=== PATIENT | female | born 1995 | race Asian ===

== ENCOUNTER → 2022-12-12 07:20 | Outpatient (CLI) | payer OTHER, SELFPAY ==
--- NOTE | 2022-12-12 07:23 | DI.US.S_ITS ---
PROCEDURE: US OB <= 14 WEEKS FETUS INDICATIONS: DATING OUTSIDE/PRIOR DATING DATA: Last menstrual period (LMP): 10/05/2022 LMP-based estimated date of delivery (TRAVON): 07/12/2023 First dating scan (date and location): 12/12/2022 Estimated date of delivery (TRAVON) from first dating scan: 07/25/2023 TECHNIQUE: Real-time scanning was performed of the fetus and maternal pelvic organs, with image documentation. Endovaginal scanning was also performed to better visualize the fetus and maternal ovaries. COMPARISON: None. FINDINGS: Embryo: Intrauterine gestational sac is seen with yolk sac and pole. Lower [place]-rump length is 1.5 cm, compatible with an estimated gestational age of 7 weeks 6 days. Suspected perigestational sac hemorrhage inferiorly measuring 1.5 x 2.9 x 1.7 cm. Heart rate: 157 beats per minute Maternal organs: A simple right adnexal cyst measures up to 2.3 cm in maximum dimension. Small amount of free fluid is seen in the pelvis. Left ovary is not well visualized. IMPRESSION: 1. Single live intrauterine with estimated gestational age of 7 weeks 6 days, giving an ultrasound TRAVON of 07/25/2023. 2. Possible perigestational sac hemorrhage measuring 1.5 x 2.9 x 1.7 cm. 3. Small amount of nonspecific free fluid is seen in the pelvis. We strive to produce accurate, complete, and clear reports of imaging services. To assist us in improving patient care, this report was composed using standard report templates and voice recognition software. Therefore, it may contain abnormal punctuation, insertions and/or omissions. Occasional wrong-word or sound-alike substitutions may occur. Though we review the report and make efforts to correct it, we do recommend that the report be read carefully in proper context to recognize any text inaccuracies. Approved by: Lance Woodward M.D. on 12/12/2022 at 13:46
== END ==
PROVIDERS: Referring Provider Obstetrics & Gynecology; Visit Provider Obstetrics & Gynecology
DX: Z36.87 Encounter for antenatal screening for uncertain dates (principal); Z3A.01 Less than 8 weeks gestation of pregnancy
CPT/HCPCS: 76801; 76817

== ENCOUNTER → 2023-01-16 11:03 | Outpatient (CLI) | payer OTHER, SELFPAY ==
[2023-01-16 11:40] LABS: Specimen Label NATERA
[2023-01-16 14:15] LABS: Urine Chlamydia NOT DETECTED; Urine N gonorrhoeae NOT DETECTED
== END ==
PROVIDERS: Referring Provider Specialist; Visit Provider Specialist
DX: Z34.81 Encounter for supervision of other normal pregnancy, first trimester (principal); Z3A.12 12 weeks gestation of pregnancy; Z11.3 Encounter for screening for infections with a predominantly sexual mode of transmission
CPT/HCPCS: 36415; 87491; 87591

== ENCOUNTER → 2023-02-11 08:49 | Outpatient (CLI) | payer OTHER, SELFPAY ==
[2023-02-11 10:15] LABS: Add Manual Diff / Slide Review NO; Basophils Absolute Auto 0 /uL (0-100); Basophils Percent Auto 0.1 % (0-2); Eosinophils Absolute Auto 200 /uL (0-450); Eosinophils Percent Auto 1.7 % (2-4); Hematocrit 36.4 % (36-46); Hemoglobin 12.4 g/dL (12.0-16.0); Lymphocytes Absolute Auto 1400 /uL (1100-4500); Lymphocytes Percent Auto 12.2 % (25-40); Mean Corpuscular HGB Conc 34.1 % (30-36); Mean Corpuscular Volume 90.8 fL (80-100); Monocytes Absolute Auto 400 /uL (0-900); Neutrophils Absolute Auto 9200 /uL (1500-7000); Platelet Count 235 X10^3/uL (150-400); Red Blood Cell Count 4.01 X10^6/uL (4.0-5.2); Red Cell Distribution Width 13.3 % (11.6-14.8); White Blood Cell Count 11.2 X10^3/uL (4.5-11.0)
[2023-02-11 16:25] LABS: Hepatitis B Surface Antigen NEGATIVE s/c (NEGATIVE)
[2023-02-11 17:04] LABS: Rubella Antibody IgG 38.3 IU/mL (>15)
[2023-02-11 17:23] LABS: HIV 1 & 2 Ab/Ag 4th Gen Combo NEGATIVE (NEGATIVE); Hep C Virus Ab w/Reflex Quant NEGATIVE s/c (NEGATIVE)
[2023-02-12 06:36] LABS: RPR Screen Non Reactive (Non Reactive)
[2023-02-12 08:36] LABS: Varicella IgG Antibody 734 index (Immune >165)
[2023-02-13 19:56] LABS: AFP Value 25.5 ng/mL (.); Gest Age on Col Date 18.4 weeks (.); Insulin Dep Diabetes No (.); OSBR Risk 1IN 10000 (.); Results Report (.); Test Results *Screen Negative* (.)
[2023-02-14 09:27] LABS: PDF SCANNED
== END ==
PROVIDERS: Obstetrics & Gynecology; Referring Provider Specialist; Visit Provider Specialist
DX: Z34.82 Encounter for supervision of other normal pregnancy, second trimester (principal); Z3A.16 16 weeks gestation of pregnancy
CPT/HCPCS: 36415; 80055; 82105; 86787; 86803; 86850; 86900; 86901; 87389

== ENCOUNTER → 2023-03-08 09:55 | Outpatient (CLI) | payer OTHER, SELFPAY ==
--- NOTE | 2023-03-08 09:56 | DI.US.S_ITS ---
PROCEDURE: US OB >= 14 WEEKS FETUS INDICATIONS: 20 week anatomy scan OUTSIDE/PRIOR DATING DATA: Last menstrual period (LMP): 10/05/2022. LMP-based estimated date of delivery (TRAVON): 07/12/2023. First dating scan (date and location): 12/12/2022. Estimated date of delivery (TRAVON) from first dating scan: 07/25/2023. The calculations are made using the ultrasound TRAVON of 07/25/2023. TECHNIQUE: Real-time scanning was performed of the fetus, with image documentation and biometric measurements. COMPARISON: 12/12/2022. FINDINGS: General: A single living intrauterine gestation is present. Presentation: Transverse, head left. Placenta: Placental position is anterior. Placenta edge 1.8 cm from the internal cervical os. Low lying. Venous lakes. Amniotic fluid index: 11.2 cm, normal range is 5-24 cm. Single deepest vertical pocket is 4.7 cm. heart rate: 149 beats per minute. Maternal cervical canal: 5.8 cm long. Normal lower limit is 2.5 cm. biometrics: Biparietal diameter: 4.5 cm, 19 weeks 5 days Head circumference: 17.7 cm, 20 weeks 1 day Abdominal circumference: 14.4 cm, 19 weeks 5 days Femur length: 3.2 cm, 19 weeks 6 days Clinically estimated gestational age: 20 weeks 1 day Composite gestational age from present scan: 19 weeks 6 days Estimated weight and percentile: 315 g, 28th percentile Anatomic survey: Neuro: Ventricles are non-dilated at less than 10 mm. Cisterna magna is normal at 3-11 mm. Cerebellum is normal in size and morphology. Nuchal skin fold: Normal at less than 6 mm between 14-21 weeks gestational age. Face: Nose and lips, facial profile are normal. Spine: No evidence for spina bifida. Heart: 4-chambered heart is present, with normal ventricular outflow tracts. Left ventricle echogenic foci x2. Diaphragm: Diaphragm is intact. Stomach: Left-sided stomach is present. Kidneys: No hydronephrosis. Normal is less than 5 mm in 2nd trimester, less than 7 mm in 3rd trimester. Cord: 3-vessel cord has orthotopic insertion. Bladder: Normal in size. Extremities: All 4 extremities identified. IMPRESSION: 1. [place] living intrauterine at 19 weeks 6 days based on today's ultrasound. Fetus is in the 28th percentile for weight. 2. Normal amniotic fluid. Low lying placenta 1.8 cm from the internal cervical os. Recommend follow-up OB ultrasound. 3. Echogenic intracardiac foci. Soft marker for aneuploidy. Otherwise normal and complete anatomic survey. We strive to produce accurate, complete, and clear reports of imaging services. To assist us in improving patient care, this report was composed using standard report templates and voice recognition software. Therefore, it may contain abnormal punctuation, insertions and/or omissions. Occasional wrong-word or sound-alike substitutions may occur. Though we review the report and make efforts to correct it, we do recommend that the report be read carefully in proper context to recognize any text inaccuracies. Dictated by: Osbaldo De La Torre M.D. on 03/08/2023 at 14:10 Approved by: Osbaldo De La Torre M.D. on 03/08/2023 at 14:19
== END ==
PROVIDERS: Referring Provider Specialist; Visit Provider Specialist
DX: Z34.82 Encounter for supervision of other normal pregnancy, second trimester (principal); Z3A.20 20 weeks gestation of pregnancy
CPT/HCPCS: 76811; 87086

== ENCOUNTER → 2023-04-08 10:40 | Outpatient (CLI) | payer OTHER, SELFPAY ==
[2023-04-08 13:25] LABS: Hematocrit 37.4 % (36-46); Hemoglobin 12.7 g/dL (12.0-16.0)
[2023-04-08 13:49] LABS: GTT (PREG) 1 Hour PP 50gm Dose 116 mg/dL (76-139)
== END ==
PROVIDERS: Referring Provider Student in an Organized Health Care Education/Training Program; Visit Provider Student in an Organized Health Care Education/Training Program
DX: Z34.82 Encounter for supervision of other normal pregnancy, second trimester (principal); Z3A.24 24 weeks gestation of pregnancy
CPT/HCPCS: 36415; 82950; 85014; 85018

== ENCOUNTER 2023-04-28 18:20 | Outpatient (CLI) | payer OTHER, SELFPAY ==
[2023-04-28 19:09] LABS: Appearance Urine UA CLEAR; Bilirubin Urine UA NEGATIVE (NEGATIVE); Color Urine UA YELLOW; Glucose Urine UA NEGATIVE (Negative); Ketones Urine UA NEGATIVE (NEGATIVE); Leukocyte Esterase Urine UA NEGATIVE (NEGATIVE); Nitrite Urine UA NEGATIVE (Negative); Occult Blood Urine UA TRACE-INTACT (Negative); Protein Urine UA NEGATIVE (Negative); Urobilinogen Urine UA 0.2 E.U./dL (0.2)
[2023-04-28 19:11] LABS: pH Urine UA 6.5 (4.5-8.0)
[2023-04-28 19:25] LABS: Bacteria Urine Moderate (10-30); Culture Indicated Urine Specimen Cultured; RBC Urine 0-1/HPF (0-5/HPF); Squamous Epithelial Cell Urine 5-10 /HPF (0-5/HPF); WBC Urine 0-1/HPF (0-5/HPF)
== END 2023-04-28 20:00 | disposition home or self-care (01) ==
LOC: OB 05-02 15:59
PROVIDERS: PCP Nurse Practitioner Family; Referring Provider Obstetrics & Gynecology; Visit Provider Obstetrics & Gynecology
DX: O60.02 Preterm labor without delivery, second trimester (principal); Z3A.27 27 weeks gestation of pregnancy
CPT/HCPCS: 59025; 59050; 81001; 87086; G0378; G0379

== ENCOUNTER → 2023-05-06 10:31 | Outpatient (CLI) | payer OTHER, SELFPAY ==
--- NOTE | 2023-05-06 10:32 | DI.US.S_ITS ---
PROCEDURE: US OB FOLLOW UP INDICATIONS: low lying placenta OUTSIDE/PRIOR DATING DATA: Last menstrual period (LMP): 10/05/2022. LMP-based estimated date of delivery (TRAVON): 07/12/2023. First dating scan (date and location): 12/12/2022. Estimated date of delivery (TRAVON) from first dating scan: 07/25/2023. The calculations are made using the working TRAVON of 07/25/2023. TECHNIQUE: Real-time scanning was performed of the fetus, with image documentation and biometric measurements. Endovaginal scanning: None COMPARISON: None. FINDINGS: General: A single living intrauterine gestation is present. Presentation: Vertex. Placenta: Placental position is anterior , without previa. Amniotic fluid index: 16.4 cm, normal range is 5-24 cm. Single deepest vertical pocket is 6.1 cm. heart rate: 153 beats per minute. Maternal cervical canal: 4.8 cm long. Normal lower limit is 2.5 cm. biometrics: IMPRESSION: Single intrauterine with appropriately positioned anterior placenta. No evidence of low lying placenta or placenta previa Approved by: Roberto Carlos Chaudhari M.D. on 05/06/2023 at 17:09
== END ==
PROVIDERS: PCP Student in an Organized Health Care Education/Training Program; Referring Provider Student in an Organized Health Care Education/Training Program; Visit Provider Student in an Organized Health Care Education/Training Program
DX: O44.42 Low lying placenta NOS or without hemorrhage, second trimester (principal)
CPT/HCPCS: 76816

== ENCOUNTER 2023-06-10 10:16 | Outpatient (CLI) | payer OTHER, SELFPAY ==
[2023-06-10 10:36] VITALS: BP 116/75
[2023-06-10 11:02] LABS: Add Manual Diff / Slide Review NO; Basophils Absolute Auto 0 /uL (0-100); Basophils Percent Auto 0.3 % (0-2); Eosinophils Absolute Auto 100 /uL (0-450); Hematocrit 36.1 % (36-46); Hemoglobin 12.2 g/dL (12.0-16.0); Lymphocytes Absolute Auto 1400 /uL (1100-4500); Lymphocytes Percent Auto 13.3 % (25-40); Mean Corpuscular HGB Conc 33.9 % (30-36); Mean Corpuscular Hemoglobin 30.8 PG (26-34); Mean Corpuscular Volume 90.8 fL (80-100); Monocytes Absolute Auto 600 /uL (0-900); Monocytes Percent Auto 5.7 % (3-14); Neutrophils Absolute Auto 8600 /uL (1500-7000); Neutrophils Percent Auto 79.7 % (50-75); Platelet Count 190 X10^3/uL (150-400); Red Blood Cell Count 3.97 X10^6/uL (4.0-5.2); Red Cell Distribution Width 13.8 % (11.6-14.8); White Blood Cell Count 10.9 X10^3/uL (4.5-11.0)
[2023-06-10 11:18] LABS: Aspartate Aminotransferase 24 IU/L (14-36); BUN Creatinine Ratio 19.5 (6-22); Blood Urea Nitrogen 8 mg/dL (7-17); Estimated Glomerular Filt Rate > 60 mL/min (>60); Uric Acid 4.6 mg/dL (2.5-6.2)
[2023-06-10 11:45] LABS: Creatinine Urine Random 123.5 mg/dL; Protein (Total) Urine Random < 5 mg/dL (0-12); Protein Creatinine Ratio Urine 0.04 GRAM/24H
--- NOTE | 2023-06-10 12:05 | P.TNLD_ITS ---
Visit Information Visit Information Date of evaluation: 06/10/23 Primary OB Provider: Christy Reyes On-call OB Provider: Christy Reyes Reason for Evaluation: Yes other Comments/Additional reasons for admission: Patient seen in clinic with elevated blood pressures x 2. 140s/90s. Sent for pre-eclampsia evaluation and NST. Vital Signs Vital Signs: Vital Signs - 8 hr 06/10/23 10:36 Blood Pressure 116/75 [facility] Medical History (Updated 06/10/23 @ 10:16 by Christy Reyes MD) Breast lump Hart's palsy Surgical History (Updated 05/16/23 @ 16:54 by Batsheva Valentin) Anesthesia History of breast lump removal (~2011) Family History (Updated 05/16/23 @ 16:55 by Batsheva Valentin) Grandmother Diabetes mellitus Hypertension Father Hypertension Hyperlipidemia Grandfather Stroke Social History marital status: number of children: 2 household members: spouse and children lives independently: Yes caregiver/support person: Yes housing: house pets and animals: No education level: vocational occupational status: employed current occupational exposures/hazards: Yes mayra/confucianist: Confucianist special mayra needs: No travel history: over 6 months ago seatbelt use: always water heater temp set < 120 deg: Yes working smoke detector in home: Yes fire extinguisher in home: No carbon monox detector in home: Yes firearms in home: Yes firearms unloaded and locked: Yes do you feel safe at home: Yes Smoking Status: Never smoker Tobacco: How many years used: 1 second hand exposure: Yes ( smokes outside) alcohol intake: former substance use type: does not use during the past year weight has: remained stable well-balanced diet: daily or most days daily servings fruits/ve or more times/day caffeine: Yes (AM cup coffee) Type(s) of exercise: none and walking Exam Vital Signs (past 8 hours): - 06/10/23 10:36 Blood Pressure 116/75 Objective Labs 06/10/23 10:45 06/10/23 10:45 Labs: Laboratory Results - last 24 hr 06/10/23 10:45 WBC 10.9 RBC 3.97 L Hgb 12.2 Hct 36.1 MCV 90.8 MCH 30.8 MCHC 33.9 RDW 13.8 Plt Count 190 Neut % (Auto) 79.7 H Lymph % (Auto) 13.3 L [place] % (Auto) 5.7 Eos % (Auto) 1.0 L Baso % (Auto) 0.3 Neut # (Auto) 8600 H Lymph # (Auto) 1400 [place] # (Auto) 600 Eos # (Auto) 100 Baso # (Auto) 0 BUN 8 Creatinine 0.41 L Estimated GFR > 60 BUN/Creatinine Ratio 19.5 Uric Acid 4.6 AST 24 U Random Total Protein < 5 Urine Creatinine 123.5 Protein/Creatinin Ratio 0.04 Evaluation Evaluation Baseline heart rate: 150 Variability: Average (6-10) monitor accelerations: Present Monitor Decelerations: Absent Category of Tracing: Reactive Diagnosis, Plan/Disposition Plan/Disposition Plan: BP normal at L&D. NST reactive. CBC normal. Creatinine normal. P/C ratio 0.04. Safe for discharge home and routine follow up. OB Disposition: home
== END 2023-06-10 12:08 | disposition home or self-care (01) ==
LOC: LABOR 11:12 → OB 06-11 16:22
PROVIDERS: PCP Student in an Organized Health Care Education/Training Program; Referring Provider Student in an Organized Health Care Education/Training Program; Visit Provider Student in an Organized Health Care Education/Training Program
DX: O26.893 Other specified pregnancy related conditions, third trimester (principal); R03.0 Elevated blood-pressure reading, without diagnosis of hypertension; Z3A.33 33 weeks gestation of pregnancy
CPT/HCPCS: 59025; 82570; 84156; 84450; 84550; 85025; G0378; G0379

== ENCOUNTER → 2023-06-24 10:00 | Outpatient (CLI) | payer OTHER, SELFPAY ==
[2023-06-25 11:40] LABS: Strep Grp B PCR POS for Grp B Strep
== END ==
PROVIDERS: PCP Student in an Organized Health Care Education/Training Program; Visit Provider Student in an Organized Health Care Education/Training Program
DX: O99.820 Streptococcus B carrier state complicating pregnancy (principal)
CPT/HCPCS: 87653

== ENCOUNTER 2023-06-24 10:23 | Observation (INO) | payer OTHER, SELFPAY ==
[2023-06-24 11:09] LABS: Add Manual Diff / Slide Review NO; Basophils Absolute Auto 0 /uL (0-100); Basophils Percent Auto 0.2 % (0-2); Eosinophils Absolute Auto 100 /uL (0-450); Eosinophils Percent Auto 0.8 % (2-4); Hematocrit 37.5 % (36-46); Hemoglobin 12.6 g/dL (12.0-16.0); Lymphocytes Absolute Auto 1400 /uL (1100-4500); Mean Corpuscular HGB Conc 33.6 % (30-36); Mean Corpuscular Hemoglobin 30.3 PG (26-34); Mean Corpuscular Volume 90.3 fL (80-100); Monocytes Absolute Auto 600 /uL (0-900); Monocytes Percent Auto 4.9 % (3-14); Neutrophils Absolute Auto 9800 /uL (1500-7000); Neutrophils Percent Auto 82.1 % (50-75); Platelet Count 205 X10^3/uL (150-400); Red Blood Cell Count 4.16 X10^6/uL (4.0-5.2); Red Cell Distribution Width 14.4 % (11.6-14.8)
[2023-06-24 11:23] LABS: Alanine Aminotransferase 20 IU/L (<35); Albumin 3.8 g/dL (3.5-5.0); Alkaline Phosphatase 121 U/L (38-126); Aspartate Aminotransferase 27 IU/L (14-36); BUN Creatinine Ratio 16.7 (6-22); Bilirubin Total 0.5 mg/dL (0.2-1.3); Blood Urea Nitrogen 7 mg/dL (7-17); Calcium 9.6 mg/dL (8.4-10.2); Carbon Dioxide 20 mmol/L (22-32); Chloride 103 mmol/L (98-107); Estimated Glomerular Filt Rate > 60 mL/min (>60); Globulin 3.7 g/dL (1.7-4.1); Glucose 118 mg/dL (70-100); HEMOLYSIS < 15 (0-50); Potassium 3.8 mmol/L (3.4-5.1); Sodium 133 mmol/L (137-145); Total Protein 7.5 g/dL (6.3-8.2)
--- NOTE | 2023-06-24 11:26 | PM.OBTRLD ---
Visit Information Visit Information Date of evaluation: 06/24/23 Primary OB Provider: Christy Reyes On-call OB Provider: Christy Reyes Reason for Evaluation: Yes other Comments/Additional reasons for admission: Pt with elevated BP in clinic and headache. Sent for pre-eclampsia rule out. Vital Signs Vital Signs: BP 124/69; 119/64. Pulse 107, 109. [facility] Medical History (Updated 06/24/23 @ 10:17 by Christy Reyes MD) Breast lump Hart's palsy Surgical History (Updated 05/16/23 @ 16:54 by Batsheva Valentin) Anesthesia History of breast lump removal (~2011) Family History (Updated 05/16/23 @ 16:55 by Batsheva Valentin) Grandmother Diabetes mellitus Hypertension Father Hypertension Hyperlipidemia Grandfather Stroke Social History marital status: number of children: 2 household members: spouse and children lives independently: Yes caregiver/support person: Yes housing: house pets and animals: No education level: vocational occupational status: employed current occupational exposures/hazards: Yes mayra/orthodoxy: Confucianism special mayra needs: No travel history: over 6 months ago seatbelt use: always water heater temp set < 120 deg: Yes working smoke detector in home: Yes fire extinguisher in home: No carbon monox detector in home: Yes firearms in home: Yes firearms unloaded and locked: Yes do you feel safe at home: Yes Smoking Status: Never smoker Tobacco: How many years used: 1 second hand exposure: Yes ( smokes outside) alcohol intake: former substance use type: does not use during the past year weight has: remained stable well-balanced diet: daily or most days daily servings fruits/ve or more times/day caffeine: Yes (AM cup coffee) Type(s) of exercise: none and walking Objective Labs 06/24/23 10:58 06/24/23 10:58 Labs: Laboratory Results - last 24 hr 06/24/23 10:58 WBC 12.0 H RBC 4.16 Hgb 12.6 Hct 37.5 MCV 90.3 MCH 30.3 MCHC 33.6 RDW 14.4 Plt Count 205 Neut % (Auto) 82.1 H Lymph % (Auto) 12.0 L [place] % (Auto) 4.9 Eos % (Auto) 0.8 L Baso % (Auto) 0.2 Neut # (Auto) 9800 H Lymph # (Auto) 1400 [place] # (Auto) 600 Eos # (Auto) 100 Baso # (Auto) 0 Sodium 133 L Potassium 3.8 Chloride 103 Carbon Dioxide 20 L BUN 7 Creatinine 0.42 L Estimated GFR > 60 BUN/Creatinine Ratio 16.7 Glucose 118 H Calcium 9.6 Total Bilirubin 0.5 AST 27 ALT 20 Alkaline Phosphatase 121 Total Protein 7.5 Albumin 3.8 Globulin 3.7 Albumin/Globulin Ratio 1.0 Evaluation Evaluation Baseline heart rate: 150 Variability: Moderate (11-25) monitor accelerations: Present Monitor Decelerations: Absent Category of Tracing: Reactive Diagnosis, Plan/Disposition Plan/Disposition Plan: Blood pressures normal in L&D. CBC, CMP wnl. P/C ratio: 0.5. With blood pressures noted in clinic, diagnosis consistent with pre-eclampsia without severe features. She does have a headache that is mild and resolving with tylenol. Return precautions for signs of severe pre-clampsia given. NST reactive. IOL scheduled 07/04. OB Disposition: home
[2023-06-24 11:34] LABS: Creatinine Urine Random 27.7 mg/dL; Protein (Total) Urine Random 16 mg/dL (0-12); Protein Creatinine Ratio Urine 0.57 GRAM/24H
[2023-06-24] MEDS: ACETAMINOPHEN 325 MG TABLET 975 MG PO (12:19)
== END 2023-06-24 12:51 | disposition home or self-care (01) ==
PROVIDERS: Admitting Provider Student in an Organized Health Care Education/Training Program; PCP Student in an Organized Health Care Education/Training Program; Referring Provider Student in an Organized Health Care Education/Training Program; Visit Provider Student in an Organized Health Care Education/Training Program
DX: O26.893 Other specified pregnancy related conditions, third trimester (principal); R51.9 Headache, unspecified; R03.0 Elevated blood-pressure reading, without diagnosis of hypertension; Z3A.35 35 weeks gestation of pregnancy; O99.820 Streptococcus B carrier state complicating pregnancy
CPT/HCPCS: 36415; 59025; 80053; 82570; 84156; 85025; 87653; G0378; G0379

== ENCOUNTER → 2023-07-01 10:26 | Outpatient (CLI) | payer OTHER, SELFPAY ==
[2023-07-01 11:00] LABS: Add Manual Diff / Slide Review NO; Basophils Absolute Auto 0 /uL (0-100); Basophils Percent Auto 0.1 % (0-2); Eosinophils Absolute Auto 100 /uL (0-450); Eosinophils Percent Auto 0.8 % (2-4); Hematocrit 36.8 % (36-46); Hemoglobin 12.4 g/dL (12.0-16.0); Lymphocytes Absolute Auto 1400 /uL (1100-4500); Lymphocytes Percent Auto 13.3 % (25-40); Mean Corpuscular HGB Conc 33.8 % (30-36); Mean Corpuscular Hemoglobin 30.6 PG (26-34); Mean Corpuscular Volume 90.4 fL (80-100); Monocytes Absolute Auto 600 /uL (0-900); Monocytes Percent Auto 5.7 % (3-14); Neutrophils Absolute Auto 8600 /uL (1500-7000); Neutrophils Percent Auto 80.1 % (50-75); Platelet Count 194 X10^3/uL (150-400); Red Blood Cell Count 4.07 X10^6/uL (4.0-5.2); Red Cell Distribution Width 14.4 % (11.6-14.8); White Blood Cell Count 10.8 X10^3/uL (4.5-11.0)
[2023-07-01 11:23] LABS: Alanine Aminotransferase 20 IU/L (<35); Albumin 3.5 g/dL (3.5-5.0); Alkaline Phosphatase 124 U/L (38-126); Aspartate Aminotransferase 27 IU/L (14-36); BUN Creatinine Ratio 17.4 (6-22); Bilirubin Total 0.4 mg/dL (0.2-1.3); Blood Urea Nitrogen 8 mg/dL (7-17); Calcium 9.3 mg/dL (8.4-10.2); Carbon Dioxide 22 mmol/L (22-32); Chloride 104 mmol/L (98-107); Estimated Glomerular Filt Rate > 60 mL/min (>60); Globulin 3.6 g/dL (1.7-4.1); Glucose 125 mg/dL (70-100); HEMOLYSIS < 15 (0-50); Potassium 3.9 mmol/L (3.4-5.1); Sodium 133 mmol/L (137-145); Total Protein 7.1 g/dL (6.3-8.2)
[2023-07-01 15:14] LABS: Protein (Total) Urine Random 9 mg/dL (0-12); Protein Creatinine Ratio Urine 0.23 GRAM/24H
== END ==
PROVIDERS: PCP Student in an Organized Health Care Education/Training Program; Referring Provider Student in an Organized Health Care Education/Training Program; Visit Provider Student in an Organized Health Care Education/Training Program
DX: O16.3 Unspecified maternal hypertension, third trimester (principal)
CPT/HCPCS: 36415; 80053; 82570; 84156; 85025

== ENCOUNTER 2023-07-04 08:05 | Inpatient (IN) | payer OTHER, SELFPAY ==
[2023-07-04 08:19] VITALS: BP 124/80
--- NOTE | 2023-07-04 08:27 | P.HPOB_ITS ---
OB HPI Date/Time Date of admission: 07/04/23 Date Patient Seen: 07/04/23 History of Present Condition Chief complaint: induction TRAVON Calculator 2 Estimated Delivery Date Method Current WG Current Estimate 07/25/23 Ultrasound #1 37w 0d Other Estimates 07/15/23 LMP (Uncertain) 38w 3d Narrative: Patient is a for IOL for pre-eclampsia without severe features. has been complicated by gestational hypertension now with p/c ratio 0.5. Intermittent contractions nightly. Intermittent headaches. care: good care Dating criteria OB: based on 1st trimester US only Obstetrical complications: preeclampsia and gestational hypertension Indications Indication for induction OB: gestational HTN/pre-eclampsia Preadmission Labs Last OB Lab Results: 2 Blood Type O Positive 02/11/23 08:56 Antibody Screen Negative 02/11/23 08:56 Hematocrit 35.5 % (36-46) L 07/04/23 09:00 Hemoglobin 11.9 g/dL (12.0-16.0) L 07/04/23 09:00 Hepatitis B Surface Antigen Negative s/c (NEGATIVE) 02/11/23 08 :56 Hepatitis C Antibody Negative s/c (NEGATIVE) 02/11/23 08:56 Rubella Antibody 38.3 IU/mL (>15) 02/11/23 08:56 Varicella-Zoster IgG Antibody 734 index (Immune >165) 02/11/23 08:56 Glucose 1 Hour 116 mg/dL (76-139) 04/08/23 11:47 Group B Streptococcus (PCR) Pos for grp b strep H 06/24/23 10:0 0 -: Chlamydia screen: negative and Gonorrhea screen: negative Genetic Screens: Quad screen: Normal Prior (ies) Past Pregnancies Del. 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 Evaluation Evaluation Baseline heart rate: 145 Variability: Moderate (11-25) monitor accelerations: Present Monitor Decelerations: Absent Contraction Frequency (minutes): 3 Category of Tracing: Reactive Status: Category l Dilation (cm): 1 Effacement (%): 50 Position of cervix: mid Consistency: soft [facility] Medical History (Updated 06/24/23 @ 10:17 by Christy Reyes MD) Breast lump Hart's palsy Surgical History (Updated 05/16/23 @ 16:54 by Batsheva Valentin) Anesthesia History of breast lump removal (~2011) Family History (Updated 05/16/23 @ 16:55 by Batsheva Valentin) Grandmother Diabetes mellitus Hypertension Father Hypertension Hyperlipidemia Grandfather Stroke Social History marital status: number of children: 2 household members: spouse and children lives independently: Yes caregiver/support person: Yes housing: house pets and animals: No education level: vocational occupational status: employed current occupational exposures/hazards: Yes mayra/adventist: Restorationism special mayra needs: No travel history: over 6 months ago seatbelt use: always water heater temp set < 120 deg: Yes working smoke detector in home: Yes fire extinguisher in home: No carbon monox detector in home: Yes firearms in home: Yes firearms unloaded and locked: Yes do you feel safe at home: Yes Smoking Status: Never smoker Tobacco: How many years used: 1 second hand exposure: Yes ( smokes outside) alcohol intake: former substance use type: does not use during the past year weight has: remained stable well-balanced diet: daily or most days daily servings fruits/ve or more times/day caffeine: Yes (AM cup coffee) Type(s) of exercise: none and walking Meds Home Medications and Allergies Home Medications Medication Instructions Recorded Confirmed Type vitamin-ferrous sulfate tab PO 12/21/22 07/01/23 History 27 mg iron-folic acid 0.8 mg tablet breast pump #1 ea 04/08/23 07/01/23 Rx Allergies Allergy/AdvReac Type Severity Reaction Status Date / Time No Known Drug Allergies Allergy Verified 07/01/23 09:52 Objective Labs 07/04/23 09:00 07/04/23 09:50 Assessment and Plan Assessment and Plan Assessment and Plan narrative: IOL for pre-eclampsia without severe features -vaginal miso 25 mcg -pre-eclampsia labs STAT -anticipate
[2023-07-04] MEDS: LACTATED RINGERS 1,000 ML 100 ML IV (09:24)
[2023-07-04] MEDS: AMPICILLIN 2,000 MG in SODIUM CHLORIDE 0.9% 100 ML 200 MG IV (09:24)
[2023-07-04] MEDS: miSOPROStoL 25 MCG TABLET VAG (09:28)
[2023-07-04 09:53] LABS: Add Manual Diff / Slide Review NO; Basophils Absolute Auto 0 /uL (0-100); Basophils Percent Auto 0.2 % (0-2); Eosinophils Absolute Auto 100 /uL (0-450); Eosinophils Percent Auto 0.9 % (2-4); Hematocrit 35.5 % (36-46); Hemoglobin 11.9 g/dL (12.0-16.0); Lymphocytes Absolute Auto 1500 /uL (1100-4500); Lymphocytes Percent Auto 13.2 % (25-40); Mean Corpuscular HGB Conc 33.5 % (30-36); Mean Corpuscular Hemoglobin 30.2 PG (26-34); Mean Corpuscular Volume 90.1 fL (80-100); Monocytes Absolute Auto 700 /uL (0-900); Neutrophils Absolute Auto 9400 /uL (1500-7000); Neutrophils Percent Auto 79.7 % (50-75); Platelet Count 203 X10^3/uL (150-400); Red Blood Cell Count 3.94 X10^6/uL (4.0-5.2); Red Cell Distribution Width 14.2 % (11.6-14.8); White Blood Cell Count 11.7 X10^3/uL (4.5-11.0)
[2023-07-04 10:12] LABS: Aspartate Aminotransferase 32 IU/L (14-36); BUN Creatinine Ratio 18.4 (6-22); Blood Urea Nitrogen 9 mg/dL (7-17); Estimated Glomerular Filt Rate > 60 mL/min (>60)
[2023-07-04] MEDS: AMPICILLIN 1,000 MG in SODIUM CHLORIDE 0.9% 100 ML 200 MG IV ×2 (13:07→17:11)
--- NOTE | 2023-07-04 13:37 | PM.OBPNLAB ---
Pelvic Exam Dilation (cm): 2 Effacement (%): 70 station: -2 Amniotic membrane status: Intact Contractions Contractions on admission: irregular Monitor mode: External Contraction frequency (min): 2 Contraction duration (min): 1 Contraction pattern: Regular Contraction intensity: Moderate Status status: Category l Heart Rate Baseline: 145 Monitor Accelerations: Present Monitor Decelerations: Absent Monitor Variability: Moderate Assessment and Plan Assessment: induction ongoing Plan: continuous present management
[2023-07-04] MEDS: OXYTOCIN PREMIX 30 UNIT/500 ML PLAST..BAG IV (13:59)
--- NOTE | 2023-07-04 17:09 | PM.OBPNLAB ---
Date/Time Date Patient Seen: 07/04/23 Time Patient Seen: 17:00 Pain Control Pain control: tolerating well Pelvic Exam Dilation (cm): 3 Effacement (%): 70 station: -2 Amniotic membrane status: Intact Comments: AROM at this time. Contractions Monitor mode: External Contraction frequency (min): 2 Contraction pattern: Regular Contraction intensity: Moderate Status status: Category l Heart Rate Baseline: 145 Monitor Accelerations: Present Monitor Decelerations: Absent Monitor Variability: Moderate Assessment and Plan Assessment: induction ongoing Plan: continuous present management Comments: -AROM at this time -continue pitocin titration
[2023-07-04] MEDS: fentaNYL 100 MCG/2 ML INJ 50 MCG IV (18:26)
[2023-07-04] MEDS: miSOPROStoL 200 MCG TABLET 800 MCG PR (19:53)
[2023-07-04] MEDS: TRANEXAMIC ACID 1,000 MG VIAL 1000 MG (20:01)
--- NOTE | 2023-07-04 20:14 | P.PCNOB_ITS ---
Events: Induced HTN, Pre-Eclampsia and Labor Induction Labor & Delivery Delivery date: 07/04/23 Intrapartal Events: None Cervical ripening method: per misoprostal protocol Induction method: AROM Delivery monitor: external FHT Route of delivery: L&D Laceration Description: None Estimated blood loss (mL): 700 Anesthesia Type: None Complications: PPH Narrative: Patient was unmedicated, found to be complete, and over one push delivered a vigorous female . Cord clamping was delayed approximately 2 minutes. Placenta delivered with external fundal massage. There was a large gush of ble eding following placental delivery. Pitocin was started. Misoprostol 1000 mcg was given rectally. Gloves were changed. Bleeding continued and a uterine sweep was performed with moderate amount of clot burden removed. Cervix appeared intact on manual exam. No perineal lacerations. A small trickle of blood continued. TXA 1 gram was given. Uterus was found to be firm. No bleeding except mild trickle with fundus massage. Plan for aftercare: Routine care
[2023-07-04] MEDS: IBUPROFEN 600 MG TABLET PO (21:13)
[2023-07-04] MEDS: ACETAMINOPHEN 325 MG TABLET 650 MG PO (21:13)
[2023-07-04] MEDS: DERMOPLAST SPRAY 20% 60 ML 1 SPRAY TOP (21:14)
[2023-07-05] MEDS: ACETAMINOPHEN 325 MG TABLET 650 MG PO ×3 (03:04→14:47)
[2023-07-05] MEDS: IBUPROFEN 600 MG TABLET PO ×3 (03:05→14:46)
[2023-07-05] MEDS: PRENATAL VIT,CALC/IRON/FOLIC 1 TABLET 1 TAB PO (08:45)
--- NOTE | 2023-07-05 14:32 | P.DS_ITS ---
Discharge Providers Provider Date of admission: 07/04/23 08:05 Discharge Date: 07/05/23 Primary care physician: Christy Reyes MD Consults: 07/04/23 08:19 Consult to Anesthesiology Urgent Comment: Consulting Provider: Anesthesiologist Reason for consultation: Epidural 07/05/23 20:11 Consult to Welder Fitter Apprentice Routine Comment: Discharge provider: Christy Reyes MD Summary Hospital Course Date Patient Seen: 07/05/23 Time Patient Seen: 12:00 Diagnoses: Normal spontaneous vaginal delivery Hospital Course: Patient is a G4 now P3 who was induced at 37 weeks for gestational hypertension with superimposed pre-eclampsia without severe features. She was GBS positive and received appropriate antibiotics during labor. She was given one dose of vaginal misoprostol followed by pitocin and AROM. She delivered unmedicated over an intact perineum. She had some post delivery bleeding and uterine atony requiring rectal misoprostol, TXA and uterine sweep. Bleeding normalized and tone was appropriate. She is recovering well. is . Peripartum Data Delivery Method: Natural Vaginal Laceration Description: None complications: none Status at Discharge Cognitive/behavioral status at discharge: at baseline, oriented Functional status at discharge: independent ambulation Overall status at discharge: patient is back to baseline Time Spent with Patient Time attestation: Total time spent providing and/or coordinating discharge services: Time spent: Greater than 30 minutes Objective Labs 07/04/23 09:00 07/04/23 09:50 Exam Narrative Exam Narrative: Fundus firm and at umbilicus. Discharge Plan Discharge Plan Patient Disposition: Home Discharge orders & Medications Prescriptions: New acetaminophen 325 mg Tablet 650 mg PO Q6HR PRN (Reason: Pain, Mild (1-3)) 7 Days Qty: 30 0RF ibuprofen 600 mg Tablet 600 mg PO Q6HR PRN (Reason: Pain, Mild (1-3)) 7 Days Qty: 24 0RF Continued (DME) breast pump Device See Rx Instructions .Route Qty: 1 0RF Rx Instructions: As directed vit-ferrous sulfat-FA 27 mg iron- 0.8 mg tablet PO Follow up/Referrals: Christy Reyes MD [Primary Care Provider] - Visit Report/Discharge Packet Stand Alone Forms: Patient Portal/API, Stroke Signs & Symptoms Discharge Data Primary Care Provider: Christy Reyes
== END 2023-07-05 19:05 | disposition home or self-care (01) | DRG 807 ==
PROVIDERS: Admitting Provider Student in an Organized Health Care Education/Training Program; PCP Student in an Organized Health Care Education/Training Program; Referring Provider Student in an Organized Health Care Education/Training Program; Visit Provider Student in an Organized Health Care Education/Training Program
DX: O14.04 Mild to moderate pre-eclampsia, complicating childbirth (principal); Z37.0 Single live birth; Z3A.37 37 weeks gestation of pregnancy; Z67.40 Type O blood, Rh positive; O99.824 Streptococcus B carrier state complicating childbirth; O67.9 Intrapartum hemorrhage, unspecified
CPT/HCPCS: 36415; 59050; 59200; 59400; 84450; 84550; 85025; 86850; 86900; 86901; G0379; J0290; J2590; J3010; S0191